=== PATIENT | male | born 1950 | race Hispanic/Latino ===

== ENCOUNTER → 2017-09-28 | Outpatient (CLI) | payer OTHER ==
[~2017-09-28] MED LIST: PENT100C9 PO
== END ==
LOC: RAH 11:31
PROVIDERS: ATTEND Family Medicine
DX: E04.1 Nontoxic single thyroid nodule (principal); I73.9 Peripheral vascular disease, unspecified
CPT/HCPCS: 76536

== ENCOUNTER → 2022-03-26 | Outpatient (CLI) | payer MEDICARE ==
[~2022-03-26] MED LIST changes: +GADOTERATE MEGLUMINE 10 MMOL/20 ML VIAL IV ONE
== END | disposition home or self-care (01) ==
LOC: RAH 09:33
PROVIDERS: ATTEND Family Medicine
DX: M48.061 Spinal stenosis, lumbar region without neurogenic claudication (principal); D43.4 Neoplasm of uncertain behavior of spinal cord; D48.9 Neoplasm of uncertain behavior, unspecified; M51.36 Other intervertebral disc degeneration, lumbar region
CPT/HCPCS: 72158; A9575

== ENCOUNTER 2024-10-18 06:12 | Day surgery (SDC) | payer MEDICARE ==
[2024-10-17 11:13] LABS: BASOPHILS # (AUTO) 0.07 K/uL (0.00-0.20); BASOPHILS % (AUTO) 1.3 % (0.0-5.0); EOSINOPHILS # (AUTO) 0.28 K/uL (0.00-0.70); HEMATOCRIT 44.1 % (42-54); IMMATURE GRANULOCYTE ABSOLUTE 0.02 K/uL (0-1); LYMPHOCYTES # (AUTO) 0.9 K/uL (1.0-4.8); MEAN CORPUSCULAR HEMOGLOBIN 31.2 pg (27.0-33.0); MEAN CORPUSCULAR HGB CONC 32.4 g/dL (32.0-36.0); MEAN CORPUSCULAR VOLUME 96.1 fL (79-99); MONOCYTES # (AUTO) 0.4 K/uL (0.1-1.0); MONOCYTES % (AUTO) 6.6 % (3.0-13.0); NEUTROPHILS # (AUTO) 3.9 K/uL (1.8-7.7); NEUTROPHILS % (AUTO) 70.7 % (40.0-77.0); PLATELET COUNT (AUTO) 263 K/uL (130-400); RED BLOOD CELL COUNT(AUTO) 4.59 MIL/uL (4.50-6.20); RED CELL DISTRIBUTION WIDTH 15.4 % (11.0-15.5); WHITE BLOOD COUNT (AUTO) 5.6 K/uL (4.8-10.8)
[2024-10-17 11:16] LABS: INR 1.03 (0.85-1.15); PROTHROMBIN TIME 10.9 SEC (9.6-11.6)
[2024-10-17 11:17] LABS: ALBUMIN 3.8 g/dL (3.5-5.0); BILIRUBIN,TOTAL 0.9 mg/dL (0.2-1.0); CREATININE 0.9 mg/dL (0.5-1.3); PARTIAL THROMBOPLASTIN TIME 28.8 SEC (26.3-35.5); POTASSIUM 4.3 mmol/L (3.5-5.1); TOTAL PROTEIN, SERUM 7.2 g/dL (6.0-8.3)
--- NOTE | 2024-10-17 11:17 | EKG ---
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
[2024-10-17 12:00] VITALS: BP 140/70; PULSE 77; RESP 15; TEMP 97.5
--- NOTE | 2024-10-17 13:00 | NUR ---
report dr sanchez reviewed ekg. ok to proceed
[2024-10-18] VITALS (13 sets, daily range): BP systolic 116–145; BP diastolic 52–84; PULSE 70–107; RESP 16–18; TEMP 97.1–97.9
[~2024-10-18] VITALS: Ht 177.8 cm; Wt 76.0 kg
[~2024-10-18 06:12] MED LIST changes: -GADOTERATE MEGLUMINE 10 MMOL/20 ML VIAL IV ONE; -PENT100C9 PO; +VIT B12 PO; +VIT C PO
[2024-10-18] MEDS ORDERED: NEOSTIGMINE METHYLSULFATE 1MG/ML IV ONE (07:36)
[2024-10-18] MEDS ORDERED: proPOFol 10 MG/ML 20ML VIAL IV ONE ×2 (07:36→07:54)
[2024-10-18] MEDS ORDERED: LIDOCAINE PF 100MG/5ML (2%) SYRINGE 5ML ONE (07:36)
[2024-10-18] MEDS ORDERED: SUCCINYLCHOLINE CHLORIDE 20 MG/ML 10 ML VIAL ONE (07:36)
[2024-10-18] MEDS ORDERED: ondanSETRON 4MG INJ ONE (07:36)
[2024-10-18] MEDS ORDERED: dexaMETHasone SOD PHOSPHATE 10MG/ML 1ML VIAL ONE (07:36)
[2024-10-18] MEDS ORDERED: GLYCOPYRROLATE 0.2 MG/ML 5 ML VIAL ONE (07:36)
[2024-10-18] MEDS ORDERED: rocuRONium bROMide 10MG/1ML 5ML VL ONE (07:37)
[2024-10-18] MEDS ORDERED: FENTanyl CITRate PF 50 MCG/1 ML 2ML VIAL ONE (07:37)
[2024-10-18] MEDS: ceFAZolin SODIUM 2 GM VIAL ONE (07:44)
[2024-10-18] MEDS: 0.9%NACL 1000ML 0 ML IV ONE (07:45)
[2024-10-18] MEDS: LACTATED RINGERS 1000ML 1,000 ML IV ONE (07:45)
[2024-10-18] MEDS: LIDOCAINE 1%-EPI 1:100,000 20 ML VIAL ONE (08:09)
[2024-10-18] MEDS: BUPIvacaine/PF 0.25% 30ML VIAL IJ ONE (08:09)
[2024-10-18] MEDS ORDERED: SUGAMMADEX SODIUM 200 MG/2 ML VIAL IV ONE (08:18)
--- NOTE | 2024-10-18 08:22 | OP ---
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 Perianal lesions.] POSTOPERATIVE DIAGNOSIS: [Same] SYNOPSIS: [Skin changes concerning for dysplasia on physical exam] PROCEDURE: [Exam under anesthesia. Excision of anal tags. Perianal skin biopsies.] ESTIMATED BLOOD LOSS: [None] INDICATIONS: [This is a 74-year-old male was recently diagnosed with perianal condylomas. Examination in the office revealed a changing his previous exam developing some white plaques around the anus with a prominent intact. After discussing with the patient and talking about alternatives, decision was made to offer him an exam under anesthesia with all other indicated procedures. He agreed with the plan and granted consent.] DESCRIPTION OF PROCEDURE: [The patient was identified in the holding area transferred to the OR placed supine on the operative table. Venodyne boots were placed for DVT prophylaxis. IV antibiotics were given. After general anesthesia was obtained was placed in lithotomy position with great care taken to pad all pressure points. Perineum was prepped and draped in the usual sterile fashion. Anal block was given with 40 mL of 0.25% Marcaine and 1% lidocaine with epinephrine. Careful digital examination did not reveal any i ntra-anal masses. A well lubricated anoscope was introduced carefully examined in this anal canal. No intra-anal lesions identified. He had some plaque-like lesions and a prominent tagged with white changes in the perianal skin. With this in mind, the prominent intact with with skin changes was excised and passed to the back table. Then the plaque-like lesions on the right posterior perianal left posterior perianal and right anterior perianal regions were biopsied extensively. Some minor changes were cauterized with the Bovie. No residual microscopic disease was seen. At this point counts were done and correct. There were no complications. There was present and scrubbed for the entire case.] MAGO YI MD Oct 18, 2024 08:22
== END 2024-10-18 10:02 ==
LOC: DAH 06:12
PROVIDERS: ATTEND Surgery
DX: A63.0 Anogenital (venereal) warts (principal); K60.2 Anal fissure, unspecified; K62.89 Other specified diseases of anus and rectum; K64.0 First degree hemorrhoids; K76.0 Fatty (change of) liver, not elsewhere classified; L29.0 Pruritus ani; K59.00 Constipation, unspecified; R10.11 Right upper quadrant pain; C64.9 Malignant neoplasm of unspecified kidney, except renal pelvis; E66.9 Obesity, unspecified; N40.0 Benign prostatic hyperplasia without lower urinary tract symptoms; Z79.899 Other long term (current) drug therapy; Z86.0100 Personal history of colon polyps, unspecified; Z68.24 Body mass index [BMI] 24.0-24.9, adult; Z98.890 Other specified postprocedural states
CPT/HCPCS: 80053; 85025; 85610; 85730; 36415; 93005; 46922; 88305; A4520; A4223 ×2; A6260; A4663; A4606; J7120; J3010; J3490 ×3; J1100; J0330; J0665; J2003; J2704 ×2; J2405; J2710; A4649; A4930; A4215; A6402; A4213; A4335; A4222; A4221; A4216; J7030; J0690